=== PATIENT | male | born 1980 | race Two or more races ===

== ENCOUNTER 2021-05-14 16:58 | Inpatient (IN) | payer OTHER, SELFPAY ==
[~2021-05-14] VITALS: Ht 175.3 cm; Wt 115.1 kg
--- NOTE | 2021-05-14 17:50 | NUR ---
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
--- NOTE | 2021-05-14 18:10 | NUR ---
PT AMBULATORY TO ROOM 43 W/ C/O SOB AND BILAT LEG SWELLING X 2 WEEKS. PT DENIES HX CHF. PT RESTING ON GURNEY. NADN. MONITORS APPLIED. REFUSED WARM BLANKET. VSS. ERP DR. FERRARA AT BEDSIDE FOR EVAL.
[2021-05-14 18:11] LABS: MEAN CORPUSCULAR HEMOGLOBIN 25.5 pg (27.5-34.5); MEAN CORPUSCULAR HGB CONC 30.6 g/dL (33.2-36.2); PLATELET COUNT 232 x10^3/uL (130-400); RED CELL DISTRIBUTION WIDTH 21.5 % (9.4-14.8)
[2021-05-14 18:22] LABS: ALANINE AMINOTRANSFERASE 24 U/L (12-78); ALBUMIN 2.9 g/dL (3.4-5.0); ANION GAP 9 mmol/L (5-15); CHLORIDE 97 mmol/L (98-107); CREATININE 0.72 mg/dL (0.7-1.3)
[2021-05-14 18:26] LABS: ALKALINE PHOSPHATASE 171 U/L (45-117); BILIRUBIN,TOTAL 2.7 mg/dL (0.2-1.0); TOTAL PROTEIN 8.2 g/dL (6.4-8.2); TROPONIN I < 0.015 ng/mL (0.000-0.045)
[2021-05-14 18:55] LABS: BAND#(MANUAL) 0.59 x10^3/uL; BANDS%(MANUAL) 4 % (0-7); EOS#(MANUAL) 0.29 x10^3/uL (0.0-0.4); EOS% (MANUAL) 2 % (1-7); LYMPH#(MANUAL) 2.35 x10^3/uL (1-3.4); LYMPHS% (MANUAL) 16 % (22-44); MONOS#(MANUAL) 0.74 x10^3/uL (0.3-2.7); MONOS% (MANUAL) 5 % (2-9); SEG#(MANUAL) 10.73 x10^3/uL (1.8-6.8); SEGS% (MANUAL) 73 % (42-75)
[2021-05-14 18:56] LABS: ANISOCYTOSIS 2+
[2021-05-14 18:57] LABS: HYPOCHROMIA 2+; MICROCYTOSIS 1+; OVALOCYTES 1+; POLYCHROMASIA 1+
[2021-05-14 18:58] LABS: <PLATELET ESTIMATE> ADEQUATE; <PLT MORPHOLOGY> NORMAL PLT MORPH; STOMATOCYTES 1+; TARGET CELLS 1+
[2021-05-14] MEDS ORDERED: LIDOCAINE 1%, 50ML INFIL ONE (19:00)
--- NOTE | 2021-05-14 19:01 | NUR ---
REPORT GIVEN TO ABBEY KENNEDY. PT RESTING ON RENETTA. NADN. MONROY.
[2021-05-14 19:50] VITALS: BP 139/67
[2021-05-14] MEDS ORDERED: FUROSEMIDE 40 MG/4 ML ONE (20:07)
[2021-05-14 20:10] VITALS: BP 98/76
--- NOTE | 2021-05-14 20:19 | NUR ---
BLOOD STARTED AT 1955 Addendum: 05/14/21 at 2020 by [email or web address] PRETRANSFUSION VS TAKEN AT 1950
[2021-05-14 20:25] VITALS: BP 110/65
[2021-05-14] MEDS ORDERED: FUROSEMIDE 20 MG/2 ML IV ONE (20:30)
[2021-05-14 20:55] VITALS: BP 141/59
--- NOTE | 2021-05-14 21:44 | NUR ---
ATTEMPTED REPORT AT THIS TIME. RN UNABLE TO TAKE REPORT BECAUSE HER OTHER PATIENT IS IN A RAPID REPONSE EVENT. RN TO CALL AGAIN SOON FOR REPORT Addendum: 05/14/21 at 2229 by [email or web address] UNDERWRITING CONSULTANT KIRBY NOTIFIED OF SITUATION
[2021-05-14] MEDS ORDERED: ONDANSETRON 2MG/ML, 2ML IVPush PRN (22:00)
[2021-05-14] MEDS ORDERED: PANTOPRAZOLE 80 MG in SODIUM CHLORIDE 0.9% 50 ML IV ONE (22:00)
[2021-05-14] MEDS ORDERED: LABETALOL 5MG/ML, 20ML IVPush PRN (22:00)
--- NOTE | 2021-05-14 22:26 | NUR ---
ATTEMPTED TO CALL REPORT AGAIN TO ABBEY SEAMAN. RN NOT ON FLOOR TO TAKE REPORT AND THERE IS NO AMMONIUM HYDROXIDE OPERATOR AVAILABLE TO TAKE REPORT. TO CALL CONDUIT MECHANIC FOR REPORT Addendum: 05/14/21 at 2229 by [email or web address] AMMONIUM HYDROXIDE OPERATOR KIRBY MADE AWARE OF SITUATION WELL
[2021-05-14 22:38] LABS: INTERNATIONAL NORMALIZED RATIO 1.27 (0.93-1.1); PROTHROMBIN TIME 13.4 Seconds (9.6-11.5)
--- NOTE | 2021-05-14 22:42 | NUR ---
report taken by tameka ann at this time
[2021-05-14] MEDS ORDERED: OMNIPAQUE 350 MG/ML, 100ML BOTTLE ONE (22:46)
[2021-05-15] VITALS (13 sets, daily range): BP systolic 116–156; BP diastolic 55–89
[2021-05-15] MEDS: PANTOPRAZOLE 80 MG in SODIUM CHLORIDE 0.9% 100 ML IV SCH ×4 (00:19→19:59)
[2021-05-15] MEDS: ACETAMINOPHEN 325 MG TABLET PO PRN ×2 (00:38→19:45)
[2021-05-15] MEDS: POTASSIUM CHLORIDE 20 MEQ, MAGNESIUM SULFATE 2 GM, THIAMINE 200 MG, MVI ADULT 10 ML, FO... IV SCH (00:38)
[2021-05-15] MEDS ORDERED: IRON DEXTRAN COMPLEX 25 MG in SODIUM CHLORIDE 0.9% 50 ML IV ONE (01:00)
[2021-05-15] MEDS ORDERED: EPINEPHRINE 1 MG/ML, 1ML SQ PRN (01:30)
[2021-05-15] MEDS ORDERED: OCTREOTIDE 1,250 MCG in SODIUM CHLORIDE 0.9% 247.5 ML IV PRN (01:30)
[2021-05-15] MEDS ORDERED: CEFTRIAXONE 1,000 MG in DEXTROSE 5% 50 ML IVPB SCH (01:30)
[2021-05-15] MEDS ORDERED: IRON DEXTRAN COMPLEX IV ONE (02:00)
[2021-05-15] MEDS ORDERED: SODIUM CHLORIDE 0.9% IV ONE (02:00)
[2021-05-15] MEDS ORDERED: FUROSEMIDE 20 MG/2 ML IV STA (03:25)
[2021-05-15] MEDS: CEFTRIAXONE 2 GM in DEXTROSE 5% 50 ML IVPB SCH (03:35)
[2021-05-15] MEDS: FUROSEMIDE 20 MG TABLET PO SCH (08:16)
[2021-05-15] MEDS ORDERED: PROPOFOL 50 ML ONE (10:08)
[2021-05-15 10:20] LABS: ANION GAP 12 mmol/L (5-15); CALCIUM 7.6 mg/dL (8.5-10.1); CHLORIDE 104 mmol/L (98-107); CREATININE 0.67 mg/dL (0.7-1.3)
[2021-05-15] MEDS ORDERED: DIAZEPAM 5 MG/ML, 2ML IVPush PRN (10:30)
[2021-05-15] MEDS ORDERED: ONDANSETRON 2MG/ML, 2ML IVPush PRN (10:30)
[2021-05-15] MEDS ORDERED: HYDROmorphone 1 MG/ML, 1ML INJ IVPush PRN (10:30)
[2021-05-15] MEDS ORDERED: OXYcodone 5 MG/5 ML ORAL.SOL UDC PO PRN (10:30)
[2021-05-15] MEDS ORDERED: FENTANYL PF 100 MCG/2ML ONE (11:29)
[2021-05-15] MEDS: FENTANYL PF 100 MCG/2ML IV PRN ×2 (11:34→11:43)
[2021-05-15] MEDS: PANTOPRAZOLE 40 MG IV IVPush SCH (14:03)
[2021-05-15] MEDS: MORPHINE SULFATE 4 MG/ML, 1ML IVPush PRN ×2 (15:31→22:11)
[2021-05-16] MEDS: POTASSIUM CHLORIDE 20 MEQ, MAGNESIUM SULFATE 2 GM, THIAMINE 200 MG, MVI ADULT 10 ML, FO... IV SCH (00:20)
[2021-05-16 01:10] VITALS: BP 130/74
[2021-05-16] MEDS: PANTOPRAZOLE 40 MG IV IVPush SCH (02:38)
[2021-05-16] MEDS: CEFTRIAXONE 2 GM in DEXTROSE 5% 50 ML IVPB SCH (03:34)
[2021-05-16 07:22] VITALS: BP 136/80
[2021-05-16] MEDS: MORPHINE SULFATE 4 MG/ML, 1ML IVPush PRN ×2 (07:57→08:27)
[2021-05-16 10:13] LABS: CREATININE 0.76 mg/dL (0.7-1.3)
[2021-05-16 10:31] LABS: ANION GAP 10 mmol/L (5-15); CHLORIDE 101 mmol/L (98-107)
[2021-05-16] MEDS: FUROSEMIDE 20 MG TABLET PO SCH (10:43)
[2021-05-16] MEDS ORDERED: OMEP-110 PO (11:08)
[2021-05-16 14:05] VITALS: BP 148/93
[2021-05-16] MEDS ORDERED: OMEPRAZOLE 20 MG CAPSULE.DR PO SCH (16:00)
[2021-05-16 17:48] LABS: ANA SCREEN NEGATIVE (Negative)
== END 2021-05-16 16:12 | disposition home or self-care (01) | DRG 441 ==
LOC: ED 17:10 → EDIP 20:54 → 4EST 23:31
PROVIDERS: ADMIT Family Medicine; ATTEND Hospitalist
PROC: 30233N1 Transfusion of Nonautologous Red Blood Cells into Peripheral Vein, Percutaneous Approach (ICD-10-PCS; 2021-05-14)
PROC: 0FPB8DZ Removal of Intraluminal Device from Hepatobiliary Duct, Via Natural or Artificial Opening Endoscopic (ICD-10-PCS; 2021-05-15)
PROC: 06L38CZ Occlusion of Esophageal Vein with Extraluminal Device, Via Natural or Artificial Opening Endoscopic (ICD-10-PCS; principal; 2021-05-15 10:45)
DX: K76.6 Portal hypertension (principal); I50.21 Acute systolic (congestive) heart failure; I85.11 Secondary esophageal varices with bleeding; D62 Acute posthemorrhagic anemia; E46 Unspecified protein-calorie malnutrition; E87.1 Hypo-osmolality and hyponatremia; K70.31 Alcoholic cirrhosis of liver with ascites; E86.1 Hypovolemia; D50.9 Iron deficiency anemia, unspecified; F10.10 Alcohol abuse, uncomplicated; F12.10 Cannabis abuse, uncomplicated; I50.83 High output heart failure; Z20.822 Contact with and (suspected) exposure to COVID-19; Z68.37 Body mass index [BMI] 37.0-37.9, adult; Z80.0 Family history of malignant neoplasm of digestive organs; Z87.891 Personal history of nicotine dependence; Z90.49 Acquired absence of other specified parts of digestive tract
CPT/HCPCS: 36415; 84591; 96374; 99285; J7042; 36430; 71046; 74177; 80048; 80053; 82105; 82180; 82306; 82607; 82728; 82784; 83516; 83540; 83550; 83880; 84100; 84207; 84252; 84425; 84484; 84590; 84630; 85014; 85018; 85025; 85610; 86038; 86704; 86706; 86708; 86803; 86850; 86900; 86923; 87340; 87635; 93005; 93306; 93975; G0378; J0696; J1750; J2354; J2704; J3010; J3411; J3475; J3480; Q9967; C9113; J1940; J2270; J7050; P9016